=== PATIENT | female | born 1965 | race Caucasian/White ===

== ENCOUNTER 2016-09-17 16:54 | Emergency (ER) | payer BC ==
[2016-09-17 17:22] VITALS: BP 156/85
[2016-09-17] MEDS ORDERED: predniSONE TAB* 20 MG PO ONE (17:50)
--- NOTE | 2016-09-17 17:55 | UC ---
General HPI - HPI Summary HPI Summary: Pt reports c/o right side facial dropping X 1 week. Pt denies any LYNN, right side weakness or injury. Pt also reports that she had a lesion on right upper eyelid and inside of right nostril. Pt states the sores/lesions have improved since onset. Denies being bit by a tick. - History of Current Complaint Chief Complaint: UCGeneralIllness Stated Complaint: ? BELLS PALSY Time Seen by Provider: 09/17/16 17:15 Hx Obtained From: Patient Onset/Duration: Gradual Onset, Lasting Days - 7 days Timing: Constant Onset Severity: Mild Current Severity: Moderate Associated Signs & Symptoms: Positive: Weakness - right side of face - Allergy/Home Medications Allergies/Adverse Reactions: Allergies Allergy/AdvReac Type Severity Reaction Status Date / Time No Known Allergies Allergy Verified 09/17/16 17:22 PMH/Surg Hx/FS Hx/Imm Hx Previously Healthy: Yes - Surgical History Surgical History: Yes Surgery Procedure, Year, and Place: 1997 - appendix - Family History Known Family History: Positive: Cardiac Disease - Social History Occupation: Employed Full-time Lives: With Family Alcohol Use: None Substance Use Type: None Smoking Status (MU): Never Smoked Tobacco Have You Smoked in the Last Year: No Review of Systems Constitutional: Negative Skin: Negative Eyes: Other - right eye drooping ENT: Negative Respiratory: Negative Cardiovascular: Negative Gastrointestinal: Negative Genitourinary: Negative Motor: Decreased ROM - right side of face, Weakness - right side of face Neurovascular: Negative Musculoskeletal: Decreased ROM - right side of face Neurological: Paresthesia - right side of face Psychological: Negative All Other Systems Reviewed And Are Negative: Yes Physical Exam Triage Information Reviewed: Yes Appearance: Other: - right side facial drooping Vital Signs: Initial Vital Signs Temp 98.5 F 09/17/16 17:16 Pulse 105 09/17/16 17:16 Resp 16 09/17/16 17:16 BP 156/85 09/17/16 17:16 Pulse Ox 98 09/17/16 17:16 Vital Signs Reviewed: Yes Eye Exam: Normal - PERRLA, pt is able to close both eye lids ENT Exam: Normal Dental Exam: Normal Neck exam: Normal Respiratory Exam: Normal Cardiovascular Exam: Normal Abdominal Exam: Normal Musculoskeletal Exam: Other Musculoskeletal: Positive: Strength Limited @ - right side facial weakness Neurological Exam: Other Neurological: Positive: Other: - right side facial drooping/weakness Psychological Exam: Normal Skin Exam: Normal Course/Dx - Differential Dx - Multi-Symptom Differential Diagnoses: CVA, Other - Sully Palsey Lyme disease Provider Diagnoses: Sully palsy. Lyme-? Shingles Discharge - Discharge Plan Condition: Stable Disposition: HOME Prescriptions: Valacyclovir HCl [Valtrex] 500 mg PO Q8H #21 tab predniSONE TAB* [Deltasone TAB*] 20 mg PO DAILY #7 tab Patient Education Materials: Wong Palsy (ED) Referrals: SOSA Boyle [Primary Care Provider] -
== END 2016-09-17 18:19 | disposition home or self-care (01) ==
LOC: UCCORT 16:54
DX: G51.0 Bell's palsy (principal); B02.9 Zoster without complications
CPT/HCPCS: 86618; 99202; G0463; J7512